=== PATIENT | male | born 1970 | race Caucasian/White ===

== ENCOUNTER 2021-05-18 08:14 | Emergency (ER) | payer OTHER ==
[2021-05-18 08:50] LABS: BASOPHIL 0.4 % (0-2); EOSINOPHIL 0.6 % (0-5); HCT 33.5 % (42.0-52.0); HGB 10.2 g/dl (13.2-18.0); LYMPHOCYTE 14.7 % (15-48); MCH 25.4 pg (25.0-31.0); MCHC 30.4 g/dL (32.0-36.0); MCV 83.3 fL (78.0-100.0); MONOCYTE 4.5 % (0-12); MPV 11.5 fL (6.0-9.5); NEUTROPHIL 79.5 % (41-80); NRBC 0; PLT 226 K/uL (150-400); RBC 4.02 M/uL (4.70-6.00); RDW 15.9 % (11.5-14.0); WBC 12.6 K/uL (4.0-10.5)
[2021-05-18 09:25] LABS: ALBUMIN 3.5 g/dL (3.4-5.0); ALKALINE PHOSHATASE 151 U/L (46-116); ALT 31 U/L (16-63); AST 22 U/L (15-37); BILIRUBIN - TOTAL 0.2 mg/dL (0.2-1.0); BUN 24 mg/dL (7-18); BUN/CREAT RATIO (CALC) 16.6 RATIO; C-REACTIVE PROTEIN <0.20 mg/dL (<=0.90); CHLORIDE 103 mmol/L (98-107); CO2 (BICARBONATE) 27 mmol/L (21-32); CREATININE 1.45 mg/dL (0.67-1.17); GLOBULIN (CALCULATION) 4.7 g/dL; GLUCOSE 244 mg/dL (74-106); MAGNESIUM 1.7 mg/dL (1.8-2.4); POTASSIUM 4.5 mmol/L (3.5-5.1); TOTAL PROTEIN 8.2 g/dL (6.4-8.2)
[2021-05-18 09:36] LABS: LACTIC ACID 1.2 mmol/L (0.4-1.9)
[2021-05-18 14:06] LABS: BILIRUBIN NEGATIVE (NEGATIVE); BLOOD TRACE-INTACT Ery/uL (NEGATIVE); CLARITY CLEAR (CLEAR); COLOR YELLOW (YELLOW); GLUCOSE (U) NORMAL (NORMAL); LEUKOCYTES NEGATIVE Leu/uL (NEGATIVE); NITRITE NEGATIVE (NEGATIVE); PROTEIN 2+ mg/dL (NEGATIVE); SPECIFIC GRAVITY 1.015 (1.001-1.030); UROBILINOGEN 0.2 mg/dL (0.2-1.0)
[2021-05-18] MEDS ORDERED: PROTONIX 40MG T40 MG PO (14:20)
[2021-05-18 14:22] LABS: SQUAMOUS EPITHELIAL CELLS RARE; URINARY RBC RARE
== END 2021-05-18 15:20 | disposition home or self-care (01) ==
LOC: FER 08:14
PROVIDERS: Emergency Medicine
DX: R07.89 Other chest pain (principal); E11.9 Type 2 diabetes mellitus without complications; Z88.2 Allergy status to sulfonamides; Z88.1 Allergy status to other antibiotic agents; Z20.822 Contact with and (suspected) exposure to COVID-19
CPT/HCPCS: 36415; 71250; 80053; 81001; 82728; 83605; 83735; 84145; 84484; 85025; 85379; 86140; 93005; J0878; J1170; J1642; J2405; J7030; U0002